=== PATIENT | male | born 1970 | race Caucasian/White ===

== ENCOUNTER 2023-08-18 11:34 | Day surgery (SDC) | payer OTHER ==
[2023-08-18] VITALS (9 sets, daily range): BP systolic 104–160; BP diastolic 49–106; PULSE 72–96; RESP 10–21; TEMP 97.9; O2SAT 93–100
[~2023-08-18] VITALS: Ht 188 cm; Wt 126.7 kg
[~2023-08-18 11:34] MED LIST: LISI20TA28 PO
[2023-08-18] MEDS: famotidine 20mg tablet PO ONE (13:08)
[2023-08-18] MEDS: ceFAZolin inj. 3,000 MG in normal saline 100ml IV soln 100 ML IV ONE (13:09)
[2023-08-18] MEDS: ringers solution, lacted 1,000 ML IV SCH (13:09)
[2023-08-18] MEDS ORDERED: enalaprilat dihydrate 2.5mg/2ml vial IV PRN (13:45)
[2023-08-18] MEDS ORDERED: proCHLORperazine 10 MG/2 ml inj IV PRN (13:45)
[2023-08-18] MEDS ORDERED: meperidine/PF 25mg/ml syringe IV PRN ×2 (13:45)
[2023-08-18] MEDS ORDERED: labetalol 20mg/4ml (5mg/ml) syringe IV PRN (13:45)
[2023-08-18] MEDS ORDERED: ondansetron/PF 4mg/2ml inj IV PRN (13:45)
[2023-08-18] MEDS ORDERED: ringers solution, lacted 1,000 ML IV SCH (13:45)
[2023-08-18] MEDS ORDERED: morphine 2 MG/ML inj. syringe IV PRN (13:45)
[2023-08-18] MEDS ORDERED: propofol inj 20 ML IV ONE (14:01)
[2023-08-18] MEDS ORDERED: fentaNYL/PF 50MCG/1 ML 2ML syringe ONE (14:02)
[2023-08-18] MEDS ORDERED: LIDOcaine 1%/PF 5ML 10 MG/ML VIAL ONE (14:02)
[2023-08-18] MEDS ORDERED: midazolam 1 mg/ML 2ml injection ONE (14:02)
[2023-08-18] MEDS ORDERED: BUPIVAcaine 2.5mg/ml inj 50ml vial (contains preservative) ONE (14:26)
[2023-08-18] MEDS ORDERED: LIDOcaine 1% 30ml preserv. free vial ONE (14:26)
[2023-08-18] MEDS ORDERED: sevoflurane 250ml liquid IH ONE (14:27)
[2023-08-18] MEDS ORDERED: BUPIVACAINE liposomal/PF 13.3 MG/ML vial IM ONE (14:44)
[2023-08-18] MEDS ORDERED: rocuronium 10mg/ml inj IV ONE (14:44)
[2023-08-18] MEDS ORDERED: dexamethasone sod phosphate 4mg/ml inj. ONE (14:45)
[2023-08-18] MEDS ORDERED: metoprolol tartrate 1mg/ml inj IV ONE (14:45)
[2023-08-18] MEDS ORDERED: BUPIVAcaine/PF 2.5mg/ml (0.25%) 10ml vial ONE (14:48)
[2023-08-18] MEDS ORDERED: meperidine/PF 50mg/ml syringe ONE (15:12)
[2023-08-18] MEDS: BUPIVAcaine 2.5mg/ml inj 50ml vial (contains preservative) SQ ONE (15:12)
[2023-08-18] MEDS ORDERED: naloxone 0.4 mg/ml inj ONE (16:16)
[2023-08-18] MEDS: meperidine/PF 25mg/ml syringe IV PRN (16:47)
[2023-08-18] MEDS: acetaminophen 1,000mg/100ml IV 100 ML IV ONE (16:58)
[2023-08-18] MEDS: morphine 4 MG/ML inj SYRINge IV PRN (17:14)
[2023-08-18] MEDS: oxyCODONE/APAP 5-325mg tablet PO PRN (17:20)
== END 2023-08-18 17:34 | disposition home or self-care (01) ==
LOC: PAS 11:34
PROVIDERS: ATTEND Surgery
DX: K43.6 Other and unspecified ventral hernia with obstruction, without gangrene (principal); I25.10 Atherosclerotic heart disease of native coronary artery without angina pectoris; I10 Essential (primary) hypertension; E66.01 Morbid (severe) obesity due to excess calories; Z68.35 Body mass index [BMI] 35.0-35.9, adult; Z95.5 Presence of coronary angioplasty implant and graft; F17.210 Nicotine dependence, cigarettes, uncomplicated; Z79.899 Other long term (current) drug therapy
CPT/HCPCS: 49594; 64488; 82948; 93005; C1781; C9290; J0131; J1100; J2175; J2250; J2270; J2310; J2405; J2704; J2710; J3010; J3490; J7030; J7120; Z7506; Z7508; Z7512; A4215; A4618

== ENCOUNTER 2025-01-03 12:55 | Day surgery (SDC) | payer OTHER ==
[2024-12-31 14:48] LABS: MEAN PLATELET VOLUME 7.4 FL (7.4-10.4); PRE OP HEMATOCRIT 51.2 % (42.0-52.0); PRE OP HEMOGLOBIN 17.1 g/dL (14.0-17.9); PRE OP PLATELET COUNT 329 X10'3 (140-440); PRE OP WHITE BLOOD COUNT 10.6 10'3 (4.8-10.8); RED CELL DISTRIBUTION WIDTH 14.0 % (11.5-14.5)
--- NOTE | 2024-12-31 14:48 | ELECTROCARDIOGRAPH REPORT ---
[facility] Test Date: 2024-12-31 Test Time: 14:40:02 Pat Name: JEREMIAS AVELAR Department: [facility]-PRE-OP Patient ID: [id number] Room: Gender: M Cannon Crewmember: TERRY : 1970 Requested By: RUDI RAMON Order Number: [id number] Reading MD: Dr. SHAILESH Pearce Measurements Intervals [place] Rate: 105 P: 53 MD: 192 QRS: 56 QRSD: 100 T: 95 QT: 375 QTc: 496 Interpretive Statements Sinus tachycardia Probable left atrial enlargement Anterior infarct, old Nonspecific T abnormalities, lateral leads Electronically Signed On 12-31-2024 16:46:[address] SHAILESH Pearce Please click the below link to view image of tracing.
[2024-12-31 15:14] LABS: CREATININE 1.27 MG/DL (0.60-1.10); PRE OP ALT 55 U/L (30-65); PRE OP ANION GAP 7 (8-16); PRE OP AST 26 U/L (10-37); PRE OP BILIRUB, TOTAL 0.5 MG/DL (0.0-1.0); PRE OP GLUCOSE 143 MG/DL (70-104); PRE OP POTASSIUM 4.0 MMOL/L (3.4-5.1); PRE OP SODIUM 140 MMOL/L (135-145); TOTAL CARBON DIOXIDE 27.5 MMOL/L (24-32); eGFR 59 ML/MIN
[~2025-01-03] VITALS: Ht 188 cm; Wt 135.2 kg
[2025-01-03] VITALS (26 sets, daily range): BP systolic 98–156; BP diastolic 45–105; PULSE 90–109; RESP 16–24; TEMP 98; O2SAT 82–99
[2025-01-03] MEDS: Cefazolin 3 GM/100ML NS IVPB 100 ML IV ONE (05:30)
[~2025-01-03 12:55] MED LIST changes: +BUPIVACAINE liposomal/PF 13.3 MG/ML 10mL vial IM ONE; +BUPIVAcaine/PF 2.5mg/ml (0.25%) 10ml vial ONE; +LIDOcaine 1% 30ml preserv. free vial ONE; +LISI10TA27 PO; -LISI20TA28 PO
[2025-01-03] MEDS: ringers solution, lacted 1,000 ML IV SCH ×2 (13:32→18:25)
[2025-01-03] MEDS ORDERED: BUPIVAcaine/PF 2.5mg/ml (0.25%) 10ml vial ONE (15:00)
[2025-01-03] MEDS ORDERED: BUPIVACAINE liposomal/PF 13.3 MG/ML 10mL vial IM ONE (15:01)
[2025-01-03] MEDS ORDERED: LIDOcaine 1% 30ml preserv. free vial ONE (15:03)
--- NOTE | 2025-01-03 15:12 | HISTORY AND PHYSICAL ---
History & Physical Providers to CC CC: RUDI RAMON MD ~ History of Present Illness Reason for Admit\Complaint: Umbilical hernia History of Present Illness Patient here today for elective repair of his umbilical hernia He was seen in the office greater than 30 days ago but denies any change in his past medical history since he was seen He was diagnosed with a symptomatic 5 cm umbilical hernia He is scheduled for robotic assisted, laparoscopic umbilical hernia repair with mesh Please see previous history and physical exam for all pertinent details Allergies: Coded Allergies: No Known Allergies (Unverified , 08/17/23) Home Medications Home Medications Active Reported Lisinopril 10 Mg Tablet 1 Tab PO DAILY ROS ROS Reviewed and negative Exam Vitals: Vital Signs Date Time Temp Pulse Resp B/P (MAP) Pulse Ox O2 Delivery O2 Flow Rate FiO2 01/03/25 13:07 16 98 Room Air 01/03/25 13:07 109 01/03/25 13:07 98.0 155/83 (107) General: 54-year-old male in no acute distress Chest: Lungs with prolonged expiratory phase but clear bilaterally Cardiovascular: Regular rate and rhythm Abdomen: Soft and nondistended Umbilical hernia Diagnostic Data Last Recorded Lab Results: 12/31/24 1440 12/31/24 1440 Problems: (1) Umbilical hernia Assessment & Plan: The risks, benefits, and alternatives to a robotic assisted, laparoscopic umbilical hernia repair with mesh were discussed with the patient. Risks include, but are not limited to, bleeding, infection, injury to intra- abdominal structures, hernia recurrence and chronic postoperative pain. Patient verbalized understanding and wishes to proceed with surgery. We will do so today as scheduled RUDI RAMON MD Jan 03, 2025 15:12
[2025-01-03] MEDS ORDERED: midazolam 1 mg/ML 2ml injection ONE (15:24)
[2025-01-03] MEDS ORDERED: propofol inj 20 ML IV ONE (15:24)
[2025-01-03] MEDS ORDERED: fentaNYL/PF 50MCG/1 ML 2ML syringe ONE (15:24)
[2025-01-03] MEDS ORDERED: rocuronium 10mg/ml inj IV ONE (15:24)
[2025-01-03] MEDS ORDERED: ondansetron/PF 4mg/2ml inj IV PRN (15:30)
[2025-01-03] MEDS ORDERED: hydrALAZINE 20mg/ml inj. IV PRN (15:30)
[2025-01-03] MEDS ORDERED: HYDROmorphone/PF 0.2 MG/ML SYRINGE IV PRN ×2 (15:30)
[2025-01-03] MEDS ORDERED: dexamethasone sod phosphate 4mg/ml inj. ONE (15:50)
[2025-01-03] MEDS ORDERED: ondansetron/PF 4mg/2ml inj ONE (17:29)
[2025-01-03] MEDS ORDERED: glycopyrrolate 0.2mg/ml inj ONE (17:50)
--- NOTE | 2025-01-03 18:01 | OPERATIVE REPORT ---
Operative Report Providers to CC CC: TIAGO RAMON MD ~ Date of Procedure: Jan 03, 2025 Pre-Operative Diagnosis: Umbilical hernia Post-Operative Diagnosis 5 cm umbilical hernia Procedure Performed Robotic assisted, laparoscopic 5 cm umbilical hernia Bilateral transversus abdominis plane nerve blocks by injection using 266 mg of Exparel Surgeon: Tiago Ramon MD FACS Monologist None Anesthesiologist: Markus Dickey Type of Anesthesia: General Findings: 5 cm umbilical hernia Evidence of previous ventral hernia repair with mesh. Mesh in good position. Wound class I Complications None Prosthetics\Implants used: 15 cm diameter coated polyester mesh Estimated Blood Loss: Minimal Specimen Removed: None Description of Procedure: Patient was brought to the operating room and identified by the nursing staff and the attending physician. Patient was placed supine and a general anesthesia was induced. Preoperative antibiotics were given. The abdomen was prepped and draped in the standard sterile fashion. Through a left subcostal stab incision the abdomen was accessed with a Veress needle technique. Abdomen was insufflated without incident. The incision was lengthened to accommodate a 12 mm optical trocar and the abdomen was entered under laparoscopic visualization. The abdomen was surveyed laparoscopically. There was a fairly large fascial defect at the level of the umbilicus. The entire upper midline was obscured due to adhesions between the omentum and the anterior abdominal wall. Under laparoscopic visualization, robotic trochars were placed in the left lateral and left lower quadrant. The da [employer] robotic arm was docked to the p atient and instruments guided intra-abdominally under laparoscopic visualization. About 30 minutes was spent taking down adhesions between the omentum and the anterior abdominal wall. In doing so, a previously placed 15 cm diameter mesh was uncovered. This was laid completely flat and there was no evidence of ventral hernia recurrence. About 4 cm below the edge of the hernia mesh, the superior margin of the umbilical fascial defect was noted. Defect at the umbilicus was 5-6 cm in diameter with a very large associated hernia sac. Fascial defect(s) were then reapproximated with running, nonabsorbable, 0V lock suture. Good fascial apposition was obtained without significant tension. A coated polyester mesh was then fixed to the anterior abdominal wall with running, absorbable, 2/0, V lock suture. Mesh laid without wrinkles or folds. The mesh measured 15 cm in diameter. Along the overlapping margin between previously placed mesh and newly placed mesh, the parameter was fixed using a running nonabsorbable suture taking bites of both the previously placed mesh and the abdominal wall. The da Kaity instruments were then removed and the robot undocked from the patient. Bilateral transversus abdominis plane nerve blocks by injection were then placed under laparoscopic visualization using a combination of Marcaine and 266 mg of Exparel. The left subcostal trocar was removed and its fascia closed percutaneously with 0 Vicryl suture under laparoscopic visualization. Remaining trochars were removed after the abdomen was allowed to deflate. Skin was closed at all sites with 4-0 Monocryl sutures and dressed with sterile dressings. Patient was awakened and taken to the postanesthesia care unit in stable condition. Counts repoted as correct: Yes TIAGO RAMON MD Jan 03, 2025 18:01
[2025-01-03] MEDS: ketorolac trometh 30MG/ML vial 30 MG/ML VIAL IV ONE (18:25)
[2025-01-03] MEDS: labetalol 20mg/4ml (5mg/ml) syringe IV PRN (18:27)
[2025-01-03] MEDS: morphine 4 MG/ML inj SYRINge IV PRN (19:03)
[2025-01-03] MEDS: oxyCODONE/APAP 5-325mg tablet PO PRN (19:25)
[2025-01-03] MEDS: acetaminophen 1,000mg/100ml IV 100 ML IV PRN (19:26)
== END 2025-01-03 20:34 | disposition home or self-care (01) ==
LOC: PAS 12:55
PROVIDERS: ATTEND Surgery
DX: K42.9 Umbilical hernia without obstruction or gangrene (principal); I25.2 Old myocardial infarction; I10 Essential (primary) hypertension; I25.10 Atherosclerotic heart disease of native coronary artery without angina pectoris; E66.9 Obesity, unspecified; G47.33 Obstructive sleep apnea (adult) (pediatric); Z79.899 Other long term (current) drug therapy; Z98.890 Other specified postprocedural states; Z68.38 Body mass index [BMI] 38.0-38.9, adult
CPT/HCPCS: 36415; 49593; 80053; 82948; 85025; 93005; C1781; J0131; J0666; J0690; J1100; J1885; J2003; J2250; J2270; J2405; J2704; J2710; J3010; J3490; J7030; J7120; Z7506; Z7508; Z7512; A4215; A4618